=== PATIENT | female | born 2005 | race African-American/Black ===

== ENCOUNTER 2024-05-19 09:07 | Emergency (ER) | payer MEDICAID, OTHER, SELFPAY ==
[2024-05-19] VITALS (12 sets, daily range): BP systolic 93–124; BP diastolic 54–78; PULSE 102–132; RESP 18–30; TEMP 37.9; O2SAT 93–100; BMI 23.6
--- NOTE | 2024-05-19 09:25 | DI.RAD.S_ITS ---
PROCEDURE: XR CHEST 1V INDICATIONS: suspected sepsis TECHNIQUE: One view of the chest was acquired. COMPARISON: None. FINDINGS: Surgical changes and devices: None. Lungs and pleura: Subtle opacity in right infrahilar region is seen, concerning for small right lower lobe infiltrate. Left lung is clear. No pleural effusions or pneumothorax. Mediastinum: Mediastinal contours appear normal. Heart size is normal. Bones and chest wall: No suspicious bony lesions. Overlying soft tissues appear unremarkable. IMPRESSION: Finding may represent small infiltrate versus atelectasis in right lower lung field. No pleural effusion or pneumothorax. Dictated by: Mike Cobian M.D. on 05/19/2024 at 10:12 Approved by: Mike Cobian M.D. on 05/19/2024 at 10:12
[2024-05-19 09:48] LABS: Urine Volume 10mL (spun)
[2024-05-19 09:52] LABS: Bacteria Urine None Seen; Culture Indicated Urine Cult Not Indicated; Mucus Urine 2+ (Negative); RBC Urine None Seen (0-5/HPF); Squamous Epithelial Cell Urine 1-5 /HPF (0-5/HPF); WBC Urine None Seen (0-5/HPF)
[2024-05-19 09:58] LABS: Add Manual Diff / Slide Review NO; Basophils Absolute Auto 100 /uL (0-100); Basophils Percent Auto 0.5 % (0-2); Eosinophils Absolute Auto 100 /uL (0-450); Eosinophils Percent Auto 0.9 % (2-4); Hematocrit 35.6 % (36-46); Hemoglobin 11.6 g/dL (12.0-16.0); Lymphocytes Absolute Auto 1300 /uL (1100-4500); Lymphocytes Percent Auto 10.6 % (25-40); Mean Corpuscular HGB Conc 32.6 % (30-36); Mean Corpuscular Hemoglobin 26.5 PG (26-34); Mean Corpuscular Volume 81.2 fL (80-100); Monocytes Absolute Auto 1300 /uL (0-900); Monocytes Percent Auto 10.5 % (3-14); Neutrophils Absolute Auto 9300 /uL (1500-7000); Neutrophils Percent Auto 77.5 % (50-75); Platelet Count 244 X10^3/uL (150-400); Red Blood Cell Count 4.38 X10^6/uL (4.0-5.2); Red Cell Distribution Width 15.8 % (11.6-14.8)
[2024-05-19] MEDS: SODIUM CHLORIDE 0.9% 1,000 ML 1000 ML IV (10:00)
[2024-05-19 10:04] LABS: INR 1.3 (0.9-1.3)
[2024-05-19 10:07] LABS: PTT Partial Thromboplastin Tim 34 SECONDS (25.1-36.5)
[2024-05-19 10:09] LABS: Alanine Aminotransferase 21 IU/L (<35); Albumin 4.6 g/dL (3.5-5.0); Albumin Globulin Ratio 1.2 (1.0-2.8); Alkaline Phosphatase 95 U/L (38-126); Aspartate Aminotransferase 34 IU/L (14-36); BUN Creatinine Ratio 12.3 (6-22); Bilirubin Total 2.2 mg/dL (0.2-1.3); Blood Urea Nitrogen 9 mg/dL (7-17); Calcium 9.3 mg/dL (8.4-10.2); Carbon Dioxide 20 mmol/L (22-32); Chloride 103 mmol/L (98-107); Estimated Glomerular Filt Rate > 60 mL/min (>60); Globulin 3.9 g/dL (1.7-4.1); Glucose 91 mg/dL (70-100); HEMOLYSIS < 15 (0-50); Lipase 69 U/L (23-300); Sodium 136 mmol/L (137-145); Total Protein 8.5 g/dL (6.3-8.2)
[2024-05-19 10:10] LABS: Lactate (Lactic Acid) 1.7 mmol/L (0.7-2.1)
--- NOTE | 2024-05-19 10:21 | EKG_ITS ---
[address] [address] Test Date: 2024-05-19 Pat Name: Jose Henderson Department: [facility] Room: Gender: Female Quality Control Inspector: MARITZA : 2005 Requested By: Order Number: [id number] Reading MD: Remy Fuchs Measurements Intervals [place] Rate: 103 P: 71 SD: 146 QRS: 22 QRSD: 68 T: 38 QT: 354 QTc: 463 Interpretive Statements Sinus tachycardia Electronically Signed On 05-19-2024 16:51:04 PST by Remy Fuchs
[2024-05-19 10:26] LABS: Procalcitonin 0.061 ng/mL (<0.5)
--- NOTE | 2024-05-19 10:28 | ED.SKABFB ---
HPI - Skin/Abscess/Foreign Bdy General Chief complaint: Skin/Abscess/Foreign Body Stated complaint: Fever, Cyst on Upper butt crack Time Seen by Provider: 05/19/24 10:21 Source: patient Mode of arrival: Ambulatory Limitations: no limitations History of Present Illness HPI narrative: Patient is a 18-year-old female without significant medical history presenting today with cyst near her buttock. She reports that she has had increasing pain there developed a fever yesterday. She is afebrile here. She has no abdominal pain chest pain nausea vomiting or other symptoms. No prior history of pilonidal cyst. Patient actually started hyperventilating heart rate went up to the 160s she was placed on a non-rebreather history was having carpal spasms. Symptoms quickly improved and she was able to calm down. Related Data Previous Rx's Medication Instructions Recorded sulfamethoxazole 800 1 tab PO BID 7 days #14 tabs 05/19/24 mg-trimethoprim 160 mg tablet (Bactrim DS) Allergies Allergy/AdvReac Type Severity Reaction Status Date / Time shellfish derived AdvReac Vomiting Verified 05/19/24 09:28 Patient History Social History Smoking Status: Former smoker Smoking Status: Former smoker alcohol intake frequency: a few times a month Substance Use Type: marijuana Exam Initial Vital Signs Initial Vital Signs: Vital Signs Temperature 100.3 F H 05/19/24 09:18 Pulse Rate 132 H 05/19/24 09:18 Respiratory Rate 24 05/19/24 09:18 Blood Pressure 109/67 05/19/24 09:18 Pulse Oximetry 100 05/19/24 09:18 Oxygen Delivery Method Room Air 05/19/24 09:18 GENERAL: [Well-appearing, well-nourished] and in [no acute] distress. HEENT: Head atraumatic,EOMI, pupils reactive, face symmetric, [moist] mucous membranes CARDIOVASCULAR: Regular rate and rhythm without murmurs, rubs or gallops. RESPIRATORY: Breath sounds equal bilaterally, no wheezes rales or rhonchi. ABDOMEN: Soft, nontender. Normoactive bowel sounds all 4 quadrants. No guarding or rebound. EXTREMITIES: Normal range of motion, no clubbing or edema. Neurovascularly intact NEUROLOGICAL: Alert and oriented x4.Normal gait and speech. Cranial nerves II through XII grossly intact. SKIN: Warm, dry, no laceration, no petechiae, no rashes or lesions. Procedures Abscess I/D I&D #1: Site: cande-rectal Local Anesthetic: lidocaine 1% and with epi Amount of anesthesia used (mL): 5 Technique: incised with #11 blade Amount of fluid expressed (mL): 10 Irrigation: No Packing used?: none Course Orders Ordered: ED Orders 05/19/24 12:35 Wound Culture and Gram Stain Stat Discontinued Medications Sodium Chloride (Normal Saline 0.9%) 1,000 mls @ 1,000 mls/hr IV BOLUS ONE Stop: 05/19/24 10:24 Last Infusion: 05/19/24 11:13 Dose: Infused Documented By: Admin: 05/19/24 10:00 Dose: 1,000 mls/hr Documented By: ADAM Ketorolac Tromethamine (Ketorolac 30 Mg/Ml Vial) 15 mg IV NOW ONE Stop: 05/19/24 10:29 Last Admin: 05/19/24 10:40 Dose: 15 mg Documented By: ADAM Ondansetron HCl (Ondansetron 4 Mg/2 Ml Inj) 4 mg IV NOW PRN PRN Reason: Nausea And Vomiting Ondansetron HCl (Ondansetron 4 Mg Odt) 4 mg SL NOW PRN PRN Reason: Nausea And Vomiting Vital Signs Vital signs: Vital Signs - 8 hr 05/19/24 09:18 05/19/24 09:48 05/19/24 09:52 Temperature 100.3 F H Pulse Rate 132 H 122 H 113 H Respiratory Rate 24 30 H Blood Pressure 109/67 112/59 L Pulse Oximetry 100 99 93 Oxygen Delivery Method Room Air Room Air 05/19/24 09:53 05/19/24 09:53 05/19/24 10:00 Temperature Pulse Rate 112 H 105 H Respiratory Rate 19 21 Blood Pressure 115/65 Pulse Oximetry 100 100 Oxygen Delivery Method 05/19/24 10:01 05/19/24 10:01 05/19/24 10:22 Temperature Pulse Rate 106 H Respiratory Rate 24 Blood Pressure 123/58 L Pulse Oximetry 96 100 Oxygen Delivery Method 05/19/24 10:22 05/19/24 10:30 05/19/24 10:30 Temperature Pulse Rate 104 H Respiratory Rate Blood Pressure 114/72 124/78 Pulse Oximetry 100 Oxygen Delivery Method 05/19/24 11:00 05/19/24 11:00 Temperature Pulse Rate 102 H Respiratory Rate 22 Blood Pressure 105/54 L Pulse Oximetry 99 Oxygen Delivery Method MDM - Skin/Abscess/Foreign Bdy Lab Data 05/19/24 09:40 05/19/24 09:40 Labs: Lab Results 05/19/24 05/19/24 Range/Units 09:29 09:40 WBC 12.0 H (4.5-11.0) X10^3/uL RBC 4.38 (4.0-5.2) X10^6/uL Hgb 11.6 L (12.0-16.0) g/dL Hct 35.6 L (36-46) % MCV 81.2 (80-100) fL MCH 26.5 (26-34) PG MCHC 32.6 (30-36) % RDW 15.8 H (11.6-14.8) % Plt Count 244 (150-400) X10^3/uL Neut % (Auto) 77.5 H (50-75) % Lymph % (Auto) 10.6 L (25-40) % [place] % (Auto) 10.5 (3-14) % Eos % (Auto) 0.9 L (2-4) % Baso % (Auto) 0.5 (0-2) % Neut # (Auto) 9300 H (7618-6523) /uL Lymph # (Auto) 1300 (7758-8835) /uL [place] # (Auto) 1300 H (0-900) /uL Eos # (Auto) 100 (0-450) /uL Baso # (Auto) 100 (0-100) /uL PT 15.0 H (9.4-12.5) SECONDS INR 1.3 (0.9-1.3) APTT 34 (25.1-36.5) SECONDS Sodium 136 L (137-145) mmol/L Potassium 3.0 L (3.4-5.1) mmol/L Chloride 103 (98-107) mmol/L Carbon Dioxide 20 L (22-32) mmol/L BUN 9 (7-17) mg/dL Creatinine 0.73 (0.52-1.04) mg/dL Estimated GFR > 60 (>60) mL/min BUN/Creatinine Ratio 12.3 (6-22) Glucose 91 (70-100) mg/dL Lactate 1.7 (0.7-2.1) mmol/L Calcium 9.3 (8.4-10.2) mg/dL Total Bilirubin 2.2 H (0.2-1.3) mg/dL AST 34 (14-36) IU/L ALT 21 (<35) IU/L Alkaline Phosphatase 95 (38-126) U/L Total Protein 8.5 H (6.3-8.2) g/dL Albumin 4.6 (3.5-5.0) g/dL Globulin 3.9 (1.7-4.1) g/dL Albumin/Globulin Ratio 1.2 (1.0-2.8) Lipase 69 (23-300) U/L Procalcitonin 0.061 (<0.5) ng/mL Urine RBC None seen (0-5/HPF) Urine WBC None seen (0-5/HPF) Ur Squamous Epith Cells 1-5 /hpf (0-5/HPF) Urine Bacteria None seen (None) Urine Mucus 2+ H (Negative) Ur Culture Indicated? Cult not indicated Vol Urine Centrifuged 10ml (spun) Point of Care Testing Test Results Negative Urine Dip Bedside Urine Glucose Negative Bedside Urine Bilirubin - Negative Bedside Urine Ketone +++ 80 Urine Specific [place] 1.015 Bedside Urine Occult Blood - Negative Bedside Urine pH 6.0 Bedside Urine Protein +/- 15 Bedside Urine Urobilinogen +/- 1mg Bedside Urine Nitrite - Negative Bedside Urine Leukocytes - Negative Esterase ECG Data Interpretation: Sinus tachycardia rate 103 OK interval 146 QRS [address] changes no arrhythmia MDM Narrative Medical decision making narrative: Patient is a 18-year-old healthy female presenting today with rectal pain. She does have a pilonidal cyst on exam. She reports fever home has temperature of a 100.3? here in his tachycardic concern for sepsis. WBC is 12. Lactic acid 1.7. Concern for pilonidal cyst with abscess Incision and drainage of pilonidal cyst removed excessive amount of fluid. Discussion with mom and patient that patient will likely need surgery for definitive treatment. Due to fever will, go ahead treat with antibiotics wound culture pending. Patient did have an episode where heart rate went into 160's she was hyperventilating had some carpal spasm quickly resolved with a non rebreather. Overall appears much better Toradol helped blood pressure is stable heart rate has come down. Discharge Plan Departure Patient Disposition: Home Clinical Impression: Cyst, pilonidal, with abscess Instructions: Pilonidal Cyst, DI for Pilonidal Cyst Drainage or Removal Activity Restrictions/Additional Instructions: *You have been diagnosed with pilonidal cyst with abscess *What to do: At this time continue with warm baths keeping it clean and dry as best you can with soap and water. Ultimately this will need surgery so that it does not come back. *Continue to take medications as directed Bactrim 1 tablet twice a day for 7 days *Follow up with your primary care provider in 2-3 days or call [phone] Can call General surgery for follow-up appointment *Return to ER if you should have increasing redness swelling fever pain [or] any new, worsening or concerning symptoms Prescriptions: New sulfamethoxazole-trimethoprim [Bactrim DS] 800-160 mg tablet 1 tab PO BID 7 Days Qty: 14 0RF Referrals: [facility] [Provider Group] Stand Alone Forms: Patient Portal/API/Survey, Work Release Note
[2024-05-19] MEDS: KETOROLAC 30 MG/ML VIAL 15 MG IV (10:40)
== END 2024-05-19 12:45 | disposition home or self-care (01) ==
PROVIDERS: Emergency Provider Emergency Medicine
DX: L05.01 Pilonidal cyst with abscess (principal); R06.4 Hyperventilation; R00.0 Tachycardia, unspecified
CPT/HCPCS: 10060; 36415; 71045; 80053; 81003; 81015; 81025; 83605; 83690; 84145; 85025; 85610; 85730; 87040; 87070; 87077; 87205; 93005; 96361; 96374; 99284; J1885